=== PATIENT | female | born 1990 | race Caucasian/White ===

== ENCOUNTER → 2019-06-26 | Outpatient (CLI) | payer MEDICAID ==
[~2019-06-26] MED LIST: xanax; zoloft
--- NOTE | 2019-06-26 16:03 | Diagnostic Imaging Report ---
Indication: Left thyroid nodule. Sonographic guidance was provided for Dr. Bedoya for left thyroid nodule FNA. Images demonstrate a peripherally calcified nodule in left lobe of thyroid. Total of 3 passes were made into the nodule by Dr. Aguilar. Impression: Sonographic guidance of a left thyroid nodule for FNA by Dr. Bedoya. Dictated by: Dictated on workstation # [id number]
== END ==
LOC: RAD 10:32
PROVIDERS: ATTEND Otolaryngology Otolaryngology/Facial Plastic Surgery
DX: E04.1 Nontoxic single thyroid nodule (principal)